=== PATIENT | female | born 1970 | race Caucasian/White ===

== ENCOUNTER → 2016-11-23 | Outpatient (CLI) | payer BC ==
--- NOTE | 2016-11-24 12:26 | MAM ---
EXAM DESCRIPTION: Screening Mammogram,Bilateral CLINICAL HISTORY: 46 yearsFemaleSCREENING. Maternal grandmother with breast cancer. Premenopausal.. History of multiple bilateral breast cysts. COMPARISON: Digital screening bilateral examination 12/31/2014 and 1812 2013. Digital diagnostic left breast examination 12/31/2013. Left breast ultrasound 01/08/2014.. No prior reports available. TECHNIQUE: Bilateral CC and MLO projection full-field images, digital screening mammographic technique. CAD was utilized. FINDINGS: The breast parenchymal density pattern is: Heterogeneously dense breast tissue, which may obscure small masses. No skin thickening or nipple retraction multiple mass densities are noted bilaterally predominantly in the posterior third and predominantly bilateral breasts. These masses bilaterally show predominantly well-circumscribed margins and density equal to the surrounding fibroglandular tissue. Masses in the lower outer quadrant of the left breast posterior third have decreased in size since the prior study. This is consistent with cysts. No new focal, stellate mass or density, focal asymmetry , and no suspicious microcalcifications bilaterally. IMPRESSION: BI-RADS CATEGORY: 2 - BENIGN FINDINGS. FOLLOW UP: Routine digital bilateral screening, one year interval from line 2017. Written communication explaining the findings and follow-up, will be mailed to the patient and referring health care provider. According to the [employer], yearly mammograms are recommended starting at age 40 and continuing as long as a woman is in good health. Any breast change noted on a breast self-exam should be reported promptly to the patient's healthcare provider. Breast MRI is recommended for women with an approximately 20-25% or greater lifetime risk of breast cancer, including women with a strong family history of breast or ovarian cancer and women who have been treated for Hodgkin's disease. A negative mammographic report should not delay tissue diagnosis in patients with significant clinical history or physical findings. Extremely dense breast tissue limits the sensitivity of digital mammography. Electronically signed by: Jc Richard MD 11/24/2016 12:25 PM CDT Workstation: [id number]
== END | disposition home or self-care (01) ==
LOC: MAMMO 10:24
PROVIDERS: ATTEND Obstetrics & Gynecology
DX: Z12.31 Encounter for screening mammogram for malignant neoplasm of breast (principal)

== ENCOUNTER → 2017-02-14 | Outpatient (CLI) | payer BC | END | disposition home or self-care (01) | LOC: GMAB 10:48 | PROVIDERS: ATTEND Family Medicine | DX: R19.7 Diarrhea, unspecified (principal) ==

== ENCOUNTER → 2017-02-21 | Outpatient (CLI) | payer BC | END | disposition home or self-care (01) | LOC: LAB.O 16:31 | PROVIDERS: ATTEND Internal Medicine Gastroenterology | DX: R19.7 Diarrhea, unspecified (principal) ==

== ENCOUNTER 2017-03-21 05:47 | Day surgery (SDC) | payer BC ==
[2017-03-21] MEDS ORDERED: LACTATED RINGERS 1,000 ML ONE (07:24)
[2017-03-21 09:43] VITALS: BP 140/96; TEMP 97.3; O2SAT 99
--- NOTE | 2017-03-21 10:02 | OP ---
DATE OF PROCEDURE: 03/21/17 REFERRING PHYSICIAN: David Chatman MD PREPROCEDURE DIAGNOSIS: 1. Chronic diarrhea. POSTPROCEDURE DIAGNOSIS: 1. Cecal papules. 2. Ileocecal valve erythema. 3. Ascending colon polyp. PROCEDURE: 1. Colonoscopy. SURGEON: Marquise Pandya MD SEDATION: The patient was sedated via IV Propofol by the Anesthesia Department. COMPLICATIONS: No immediate complications. CONSENT: Prior to the procedure, risks, benefits and alternatives to the therapy were discussed with the patient. The risks included bleeding, infection , perforation and . The patient agreed to the procedure and signed a consent. Preprocedure anesthesia assessment and examination revealed no contraindication to sedation. Airway examination was Mallampati class type 3, ASA grade assessment type 2. Throughout the procedure, the patient's blood pressure, pulse and oxygen saturation were monitored. PROCEDURE: The patient was placed in the left lateral decubitus position and a rectal examination was performed. The rectal examination was within normal limits. The Olympus colonoscope was passed in the anus, rectum, traversing the colon to the level of the cecum as identified by the appendiceal orifice as well as intubation of the terminal ileum. The scope was retracted and the mucosa was visualized. The entirety of the exam was performed with direct visualization. Retroflexion was performed in the rectum. Preparation quality was good. The withdrawal time was greater than 6 minutes. The patient tolerated the procedure well. FINDINGS: The terminal ileum was normal. Confluent small papules were seen in the cecum with no specific pattern to them. Biopsies were obtained from these lesions. No contiguous erythema, erosions, hyperemia, nor exudate was seen. Erythema of the ileocecal valve was seen. Biopsies were obtained from this area. A diminutive ascending colon polyp, measuring 2-mm, was seen and resected with a biopsy forceps. The remainder of the colonic exam was unremarkable. Random biopsies were taken from the ascending colon as well as the descending colon to rule out microscopic colitis. Retroflexion in the rectum was normal. There was no evidence of hemorrhoids. RECOMMENDATION: Return the patient home. Resume previous diet. Continue prior medication regimen including Robinul Forte, Imodium p.r.n. as well as Viberzi. Followup with pathology. If evidence of adenomatous polyps, repeat colonoscopy within 5 years will be indicated. Return to my office in the next 1 to 2 weeks. Findings were discussed with the patient and her family members. [facility][id number] [facility]
[2017-03-21] MEDS ORDERED: PROPOFOL 200 MG/20 ML VIAL IV ONE (12:00)
== END 2017-03-21 09:30 | disposition home or self-care (01) ==
LOC: AMB 05:47
PROVIDERS: ATTEND Internal Medicine Gastroenterology
DX: K52.9 Noninfective gastroenteritis and colitis, unspecified (principal); K92.89 Other specified diseases of the digestive system; D12.0 Benign neoplasm of cecum; D12.2 Benign neoplasm of ascending colon; I10 Essential (primary) hypertension; K21.9 Gastro-esophageal reflux disease without esophagitis; G47.30 Sleep apnea, unspecified; Z68.41 Body mass index [BMI] 40.0-44.9, adult; E66.9 Obesity, unspecified; Z88.8 Allergy status to other drugs, medicaments and biological substances; Z79.899 Other long term (current) drug therapy
CPT/HCPCS: 00810; 45380; J3490; J7120

== ENCOUNTER → 2017-05-02 | Outpatient (CLI) | payer BC | END | disposition home or self-care (01) | LOC: GMAB 15:16 | PROVIDERS: ATTEND Family Medicine | DX: L03.116 Cellulitis of left lower limb (principal) ==

== ENCOUNTER → 2018-03-22 | Outpatient (CLI) | payer BC ==
--- NOTE | 2018-03-22 13:34 | US ---
US THYROID CLINICAL STATEMENT: E04.1. THYROID NODULE.. No palpable mass. No prior thyroid surgery or therapy. COMPARISON: None FINDINGS: Size right thyroid lobe: 3.9 x 1.9 x 1.5 cm Size left thyroid lobe: 5.3 x 2.4 x 2.2 cm Size isthmus: 0.38 cm Estimated total number of nodules greater than or equal to 1 cm: 4 Nodule 1: Size: 1.2 x 0.9 x 0.7 cm Location: Right Mid Composition: solid or almost completely solid: 2 points Echogenicity: hypoechoic: 2 points Shape: wider than tall: 0 points Margins: smooth: 0 points Echogenic foci: none: 0 points ACR Total Points: 4; ACR TI-RADS risk category: TR4 - moderately suspicious nodule. Nodule 2: Size: 1.1 x 0.8 x 0.7 cm Location: Right Upper Composition: solid or almost completely solid: 2 points Echogenicity: hypoechoic: 2 points Shape: wider than tall: 0 points Margins: smooth: 0 points Echogenic foci: none: 0 points ACR Total Points: 4; ACR TI-RADS risk category: TR4 - moderately suspicious nodule. Nodule 3: Size: 2.1 x 1.8 x 1.5 cm Location: Left Mid Composition: solid or almost completely solid: 2 points Echogenicity: hypoechoic: 2 points Shape: wider than tall: 0 points Margins: smooth: 0 points Echogenic foci: none: 0 points ACR Total Points: 4; ACR TI-RADS risk category: TR4 - moderately suspicious nodule. Nodule 4: Size: 1.0 x 0.9 x 0.8 cm Location: Left Mid Composition: solid or almost completely solid: 2 points Echogenicity: hypoechoic: 2 points Shape: wider than tall: 0 points Margins: smooth: 0 points Echogenic foci: none: 0 points ACR Total Points: 4; ACR TI-RADS risk category: TR4 - moderately suspicious nodule. No distinct solid masses or cysts in the soft tissues around the thyroid gland. No large calcifications or parenchymal edema. No overlying skin changes. Normal vascularity. IMPRESSION: 1. Nodule 1: ACR TI-RADS 2017 Category TR4. Recommend: Follow-up ultrasound in 1 year.. [facility] recommendations are based upon ACR TI-RADS 2017 guidelines. Please see below. 2. Nodule 2: ACR TI-RADS 2017 Category TR4. Recommend: Follow-up ultrasound in 1 year. 3. Nodule 3: ACR TI-RADS 2017 Category TR4. Recommend: Ultrasound-guided fine needle aspiration. 4. Nodule 4: ACR TI-RADS 2017 Category TR4. Recommend: Follow-up ultrasound in 1 year.. Soft tissue around the thyroid gland is unremarkable. *ACR TI-RADS 2017 Recommendations: TR1: No FNA or follow up TR2: No FNA or follow up TR3: FNA if >/= 2.5 cm, follow up if 1.5 - 2.4 cm in 1, 3, and 5 years TR4: FNA if >/= 1.5 cm, follow up if 1.0 - 1.4 cm in 1, 2, 3, and 5 years TR5: FNA if >/= 1.0 cm, follow up if 0.5 - 0.9 cm every year for 5 years ACR TI-RADS recommends that no more than two nodules with the highest ACR TI-RADS total point should be biopsied and no more than four nodules should be followed. Electronically signed by: Jc Richard MD 03/22/2018 1:33 PM [employer]AIC WORKER
== END ==
LOC: US 09:36
PROVIDERS: ATTEND Family Medicine
DX: E04.1 Nontoxic single thyroid nodule (principal)

== ENCOUNTER → 2018-12-13 | Outpatient (CLI) | payer BC ==
--- NOTE | 2018-12-13 17:10 | US ---
EXAM DESCRIPTION: Thyroid CLINICAL HISTORY: 48 years, Female, MULTINODULAR GOITER. Patient has had largest left thyroid lobe nodule biopsy with negative results. COMPARISON: Thyroid ultrasound 03/22/2018. FINDINGS: Thyroid ultrasound demonstrates mildly bulky thyroid gland with heterogenous echotexture. The right lobe measures 4.3 x 1.6 x 1.7 cm. Within the right thyroid lobe a 1 x 0.9 cm isoechoic solid nodule is present at the mid aspect, additional 1 x 0.9 cm isoechoic nodule is present superiorly. These nodules were approximately 1.1 cm on previous examination, unchanged. The left lobe measures 0.9 x 2.4 x 2.5 cm. Within the left thyroid a 2.3 x 2 cm isoechoic solid nodule is present at the mid aspect (previously approximately 2 cm, similar compared to prior examination when accounting for differences in technique). An additional 0.9 cm hypoechoic nodule is also present, previously 0.9 cm. No cervical adenopathy. IMPRESSION: 1. No significant interval change. 2. Multinodular thyroid gland with stable bilateral thyroid nodules (two on each side). Electronically signed by: Hernando Rose DO 12/13/2018 5:09 PM CDT
== END ==
LOC: US 09:47
PROVIDERS: ATTEND Internal Medicine Endocrinology, Diabetes & Metabolism
DX: E04.2 Nontoxic multinodular goiter (principal); N91.2 Amenorrhea, unspecified; K52.9 Noninfective gastroenteritis and colitis, unspecified; R61 Generalized hyperhidrosis; R63.5 Abnormal weight gain

== ENCOUNTER → 2020-03-18 | Outpatient (CLI) | payer BC | LOC: GMAE 16:40 | PROVIDERS: ATTEND Family Medicine | DX: N39.0 Urinary tract infection, site not specified (principal) ==

== ENCOUNTER → 2020-04-19 | Outpatient (CLI) | payer BC | LOC: LAB.O 08:39 | PROVIDERS: ATTEND Obstetrics & Gynecology | DX: Z01.419 Encounter for gynecological examination (general) (routine) without abnormal findings (principal) ==

== ENCOUNTER → 2020-06-04 | Outpatient (CLI) | payer BC ==
--- NOTE | 2020-06-04 16:57 | MAM ---
EXAM DESCRIPTION: 3D Screening BILATERAL : Digital Mammography. CLINICAL HISTORY: 50 years Female SCREENING . No complaints. No partial or family history of breast cancer. Menarche age 11. Childbirth age 25. Menopause age 48. Currently on HRT. Lifetime risk of developing breast cancer (Tyrer-Cuzick model)(%): 9.7. COMPARISON: Bilateral screening digital breast tomosynthesis December 2017 TECHNIQUE: Bilateral CC and MLO projection full-field images, digital tomosynthesis mammographic technique Bilateral digital 2-D full-field MLO images. CAD available for 2-D images. FINDINGS: The breast parenchymal density pattern is: Scattered areas of fibroglandular density. Solitary microcalcifications. Stable focal asymmetry upper outer quadrant left breast. Intramammary nodes. Node or cyst posterior left breast laterally stable. Axillary nodes. No skin thickening or nipple retraction No new focal, stellate mass or density, focal asymmetry , and no suspicious microcalcifications bilaterally. Stable mammograms compared to prior study. IMPRESSION: Benign exam. BIRAD CATEGORY: 2 BENIGN FINDINGS. RECOMMENDATIONS: FOLLOW UP: Routine digital bilateral mammographic screening, one year interval from May 2020. Written communication explaining the IMPRESSION and follow-up, will be mailed to the patient and referring health care provider. According to the [employer], yearly mammograms are recommended starting at age 40 and continuing as long as a woman is in good health. Any breast change noted on a breast self-exam should be reported promptly to the patient's healthcare provider. Breast MRI is recommended for women with an approximately 20-25% or greater lifetime risk of breast cancer, including women with a strong family history of breast or ovarian cancer and women who have been treated for Hodgkin's disease. A negative mammographic report should not delay tissue diagnosis in patients with significant clinical history or physical findings. Extremely dense breast tissue limits the sensitivity of digital mammography. Electronically signed by: Jc Richard MD 06/04/2020 4:55 PM MARKETING SERVICES SPECIALIST
== END ==
LOC: MAMMO 08:44
PROVIDERS: ATTEND Obstetrics & Gynecology
DX: Z12.31 Encounter for screening mammogram for malignant neoplasm of breast (principal)